=== PATIENT | female | born 1965 | race African-American/Black ===

== ENCOUNTER 2016-12-10 20:00 | Inpatient (IN) | payer OTHER ==
[~2016-12-10] VITALS: Ht 165.1 cm; Wt 54.9 kg
--- NOTE | ~2016-12-10 | DS ---
Unit #: [id number] #: [id number] Patient: ESCOBAR NOEL [id number] [facility] [address] [place] [address] [id number] I MR#: [id number] NAME: ESCOBAR NOEL. ROOM: [facility] Age: 51 Sex: F Admission Date: 12/11/2016 : 1965 Discharge Date: 12/15/2016 Attending Physician: Momo Genao M.D. Primary Care Physician: Primary Care Physician No DISCHARGE SUMMARY REASON FOR ADMISSION Psychosis. DIAGNOSTIC STUDIES LABORATORY DATA: Urine drug screen positive for cocaine and marijuana. HOSPITAL COURSE Patient was admitted to inpatient unit on 12/11/16 and discharged on 12/15/16. Patient was treated with group therapy, individual therapy, medication management. Patient was responsive to treatment, showed improvement. Subsequently, patient was discharged with a plan to follow up in outpatient program. DISCHARGE DIAGNOSES PSYCHIATRIC: 1. Major depressive disorder, recurrent, severe, F33.2. 2. Psychosis NOS. 3. Cocaine use disorder, severe, F14.20. 4. Cannabis abuse, moderate, F12.20. SECONDARY DIAGNOSIS: Deferred. MEDICAL DIAGNOSIS: 1. Hypertension. 2. Heart failure. STRESSORS: Psychosocial stressor. FOLLOWUP CARE Patient to followup in outpatient clinic as per social services manager. DISCHARGE MEDICATIONS 1. Trazodone 50 mg at bedtime for sleep. 2. Vistaril 25 mg t.i.d. for anxiety. 3. Zyprexa 10 mg at bedtime for psychosis. CONDITION AT DISCHARGE Patient pleasant, cooperative. Denied any psychotic symptoms or any suicidal ideation. PROGNOSIS Guarded. Unit #: [id number] #: [id number] Patient: ESCOBAR NOEL DIET AND ACTIVITY As tolerated. Dictated by... Mick Richmond/ayo TD: 12/18/2016 16:04 JOB #: [id number] DISCHARGE SUMMARY Page 1 of 1 X Momo Genao MD X DISCHARGE SUMMARY
--- NOTE | ~2016-12-10 | PN ---
Unit #: [id number] #: [id number] Patient: CATHERINE YOU [id number] [facility] [address] [place] [address] [id number] I MR#: [id number] NAME: CATHERINE YOU. ROOM: [facility] Age: 51 Sex: F Admission Date: 12/11/2016 : 1965 Attending Physician: Momo Genao M.D. Admitting Physician: Momo Genao M.D. Primary Care Physician: Primary Care Physician Mariana RAMÍREZ NOTES DATE OF SERVICE: 12/13/2016 DISCUSSION Ms. Catherine You is a 51-year-old female, seen on 12/13/2016. The patient is interviewed, chart reviewed, and obtained information from nursing staff. The patient was compliant and cooperative. Mood was labile. The patient was able to participate in programing, maintain safe behavior, showing improvement. Vital signs; the patient refused, but is still isolative and guarded. REVIEW OF SYSTEMS Complete review of systems unremarkable. MENTAL STATUS EXAMINATION General appearance, the patient dressed casually. Attention span and concentration, fair. Orientation in self. Mood and affect, labile. Speech, monotone. Thought process, concrete. The patient denied any thoughts of harming self or others, but guarded and paranoid. Recent and remote memory, poor. Insight and judgment, poor. DIAGNOSES Psychosis, not otherwise specified. Mood disorder, not otherwise specified. ASSESSMENT AND PLAN Advised to continue with current medication and therapeutic protocol. If needed, consider further adjustment of medication. The patient is currently on a combination of Desyrel, Zyprexa, Vistaril. Dictated by... Mick Richmond/sangeeta TD: 12/16/2016 02:11 JOB #: [id number] Unit #: [id number] #: [id number] Patient: CATHERINE YOU DESIREE NOTES Page 1 of 1 X Momo Genao MD PROGRESS NOTE
--- NOTE | ~2016-12-10 | PA ---
Unit #: [id number] #: [id number] Patient: CATHERINE YOU [id number] [facility] [address] [place] [address] [id number] I MR#: [id number] NAME: CATHERINE YOU. ROOM: [facility] Age: 51 Sex: F Admission Date: 12/11/2016 : 1965 Date of Assessment: 12/11/2016 Attending Physician: Momo Genao M.D. Admitting Physician: Momo Genao M.D. Primary Care Physician: Primary Care Physician No PSYCHIATRIC ASSESSMENT DATE OF SERVICE 12/11/2016. INFORMANTS The patient's reliability, poor; chart reliability, good. CHIEF COMPLAINT Depression, racing thoughts. HISTORY OF PRESENT ILLNESS Ms. Catherine You is a 51-year-old female, seen on , presented with the above-mentioned symptoms. The patient was last assessed at [facility] in 2015. At that time, the patient was homeless and diagnosed with alcohol abuse and cocaine abuse. The patient was transferred from [facility], where she was admitted due to high blood pressure, rectal bleeding. The patient was bizarre behavior, disorganized, racing thoughts, noncompliant with treatment. The patient was seems to be attending to internal stimuli, guarded, paranoid. Unable to give any coherent information. The patient reported increase in anxiety and depression. Reported currently homeless without her disability checked due to stealing it. The patient reported she does not have any money for food and retirement, feeling anxious, sad, depressed. The patient reported her mind is racing. Denied any suicidal or homicidal ideation, but guarded and paranoid. The patient having hard time focusing, concentration, making decisions. 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 The patient is very paranoid, depressed, anxious. The patient denied any use of any drugs or alcohol, but history of cocaine abuse. Needing inpatient admission at this time for psychiatric stabilization. PAST PSYCHIATRIC HISTORY Remarkable for history of cocaine abuse, alcohol abuse, history of psychosis, history of previous assessment at [facility] in 2015. FAMILY HISTORY AND SOCIAL HISTORY The patient currently homeless, poor support system. No legal problem. MEDICAL HISTORY Remarkable for history of hypertension, heart failure, noncompliant with treatment due to her psychiatric condition. MEDICATION HISTORY The patient is currently on no medication. Unit #: [id number] #: [id number] Patient: CATHERINE YOU ALLERGIES No known drug allergies. SUBSTANCE ABUSE HISTORY The patient's urine drug screen was positive for marijuana and cocaine. The patient was unable to give any reliable information. REVIEW OF SYSTEMS HEENT: Eyes, clear. Ears, nose, mouth, and throat; clear. CARDIOVASCULAR: Unremarkable. RESPIRATORY: Unremarkable. GI: Unremarkable. : Unremarkable. SKIN: Unremarkable. LYMPH NODE: Unremarkable. NEUROLOGIC: Unremarkable. ENDOCRINE: Unremarkable. HEMATOLOGIC: Unremarkable. ALLERGIC/IMMUNOLOGIC: Unremarkable. MUSCULOSKELETAL: Muscle strength and tone, no atrophy or abnormal movement. Gait normal. MENTAL STATUS EXAMINATION CONSTITUTIONAL: Measurement of vital signs; temperature 98.0, pulse 99, respirations 20, blood pressure 117/83, height 5 feet 5 inches, weight 121 pounds. GENERAL APPEARANCE: The patient dressed casually. The patient did not show any facial deformity. MUSCULOSKELETAL: Please see above. PSYCHIATRIC EXAMINATION Description of speech; regular rate, normal volume, normal articulation, coherent. Description of thought process, goal directed. Description of association, guarded. Description of abnormal psychotic thinking; guarded, paranoid, disorganized thought process, sad, depressed, anxious, nervous. Description of the patient's judgment; concerning everyday activity, poor. Social situation, poor. Concerning psychiatric condition, poor. Complete mental status examination; oriented in place and person. Recent and remote memory, poor. Attention span and concentration, poor. Language, fair. Fund of knowledge, poor. Vocabulary, poor. Mood and affect, sad and dysphoric. Insight and judgment, poor. ASSETS AND LIABILITIES Assets; the patient is articulate, able to take care of her ADL. Liability; homelessness, poor support system. ADMITTING DIAGNOSES Psychiatric: Major depressive disorder, recurrent, severe, F33.2; psychosis, not otherwise specified, F29.0, cocaine use disorder, severe, F14.20. Secondary diagnosis: Deferred. Medical diagnosis: Hypertension, heart failure. Unit #: [id number] #: [id number] Patient: CATHERINE YOU Stressors: Psychosocial stressors. PSYCHIATRIC PLAN AND TREATMENT GOAL AND DISCHARGE PLAN 1. Advised to admit the patient on the inpatient unit. Provide safe, supportive, and structured environment. 2. Ordered labs; CBC, CMP, UA, and UDS. 3. Medical consultation to review the patient's medical condition and monitor. 4. The patient to start with Zyprexa 10 mg b.i.d. and Desyrel 50 mg at bedtime, Vistaril 25 mg t.i.d. If needed, consider SSRI too. The patient to attend all the programming group therapy, individual therapy, chemical dependency group. 5. Treatment goal; to attain euthymic mood, gain insight into her problem, and learn coping skills. 6. Discharge plan; plan to stabilize the patient and consider followup in outpatient program. ESTIMATED LENGTH OF STAY 5 days. Dictated by... Mick Richmond/sangeeta TD: 12/12/2016 16:19 JOB #: [id number] PSYCHIATRIC ASSESSMENT Page 1 of 1 X Momo Genao MD X PSYCHIATRIC ASSESSMENT
--- NOTE | ~2016-12-10 | CO ---
Unit #: [id number] #: [id number] Patient: CATHERINE NOEL [id number] [facility] [address] [place] [address] [id number] I MR#: [id number] NAME: CATHERINE NOEL. ROOM: [facility] Age: 51 Sex: F Admission Date: 12/11/2016 : 1965 Attending Physician: Momo Genao M.D. Primary Care Physician: Primary Care Physician No Consultation Date: 12/11/2016 CONSULTATION REPORT SUBJECTIVE Catherine is a 51-year-old who thought that her foot was broken. She was seen for her admission H and P on 12/11/2016. This area was documented. Please see H and P dated 12/11/2016. Dictated by... Constance Wesley P.A.-C. for Mick Irving/sangeeta TD: 12/11/2016 22:30 JOB #: [id number] CONSULTATION REPORT Page 1 of 1 X Constance Wesley CONSULTATION REPORT
--- NOTE | ~2016-12-10 | PN ---
Unit #: [id number] #: [id number] Patient: CATHERINE YOU [id number] [facility] [address] [place] [address] [id number] I MR#: [id number] NAME: CATHERINE YOU. ROOM: [facility] Age: 51 Sex: F Admission Date: 12/11/2016 : 1965 Attending Physician: Momo Genao M.D. Admitting Physician: Momo Genao M.D. Primary Care Physician: Primary Care Physician Mariana WEISS PROGRESS NOTES DATE 12/12/2016 DISCUSSION Ms. Catherine You is a 51-year-old female seen on 12/12/2016. Patient continues to be withdrawn, isolative, flat affect, sad, dysphoric, answered questions in short sentences. Complete review of system unremarkable. MENTAL STATUS EXAMINATION General appearance, patient dressed casually. Attention span, concentration poor. Orientation in self and place. Mood and affect labile. Thought process circumstantial, guarded, paranoid. Recent and remote memory poor. Insight and judgement poor. DIAGNOSES 1. Psychosis NOS. 2. Cocaine use disorder, severe. 3. Rule out major depressive disorder. ASSESSMENT/PLAN Advised to continue with current medication and therapeutic protocol. If needed, consider further adjustment of medication. Dictated by... Mick Richmond/yao TD: 12/13/2016 23:24 JOB #: [id number] Unit #: [id number] #: [id number] Patient: CATHERINE YOU ABHISHEK PROGRESS NOTES Page 1 of 1 X Momo Genao MD PROGRESS NOTE
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
--- NOTE | ~2016-12-10 | PN ---
Unit #: [id number] #: [id number] Patient: CATHERINE YOU [id number] [facility] [address] [place] [address] [id number] I MR#: [id number] NAME: CATHERINE OYU. ROOM: P122 Age: 51 Sex: F Admission Date: 12/11/2016 : 1965 Attending Physician: Momo Genao M.D. Admitting Physician: Momo Genao M.D. Primary Care Physician: Primary Care Physician Mariana WEISS PROGRESS NOTES DATE OF SERVICE 12/14/2016 DISCUSSION Ms. Catherine You is a 51-year-old female seen on 12/14/2016. Patient interviewed, chart reviewed. Obtained information from nursing staff. Patient tolerating medication fairly well, making progress. Decrease in anxiety, depression. Denied any thoughts of harming self or others but seclusive, isolative. Complete review of systems unremarkable. MENTAL STATUS EXAMINATION General appearance, patient dressed casually in hospital attire. Attention span and concentration fair. Oriented to time, place and person. Mood and sad, dysphoric. Speech monotone. Thought process concrete. Patient denied any thoughts of harming self or others but withdrawn isolative. Recent and remote memory poor. Insight and judgement poor. DIAGNOSES 1. Psychosis NOS. 2. Mood disorder NOS. ASSESSMENT/PLAN Advise to continue with current medication and therapeutic protocol. If needed consider further adjustment of medication. Dictated by... Mick Richmond/rah TD: 12/16/2016 01:50 JOB #: [id number] Unit #: [id number] #: [id number] Patient: CATHERINE YOU PEAGABY PROGRESS NOTES Page 1 of 1 X Momo Genao MD X PROGRESS NOTE
[2016-12-11 09:55] LABS: URINE APPEARANCE CLEAR; URINE BILIRUBIN NEG (NEG); URINE BLOOD NEG (NEG); URINE COLOR YELLOW; URINE GLUCOSE NEG (NEG); URINE KETONE NEG (NEG); URINE LEUKOCYTE ESTERASE NEG (NEG); URINE NITRATE NEG (NEG); URINE PROTEIN NEG (NEG); URINE SPECIFIC GRAVITY 1.015 (1.003-1.035)
[2016-12-11 10:16] LABS: AMPHETAMINE NEG (NEG); BARBITURATES NEG (NEG); BENZODIAZEPINES NEG (NEG); COCAINE POS (NEG); MARIJUANA POS (NEG); OPIATES NEG (NEG); TRICYCLIC ANTIDEPRESSANTS NEG (NEG); U METHADONE NEG (NEG)
== END 2016-12-15 09:45 | disposition home or self-care (01) | DRG 885 ==
LOC: P1S 12-11 01:14
PROVIDERS: Psychiatry & Neurology Psychiatry
DX: F33.2 Major depressive disorder, recurrent severe without psychotic features (principal); I11.0 Hypertensive heart disease with heart failure; I50.9 Heart failure, unspecified; F14.20 Cocaine dependence, uncomplicated; F29 Unspecified psychosis not due to a substance or known physiological condition; F12.20 Cannabis dependence, uncomplicated; F17.200 Nicotine dependence, unspecified, uncomplicated
CPT/HCPCS: 80307; 81003; 84703